=== PATIENT | male | born 1955 | race Caucasian/White ===

== ENCOUNTER 2017-12-15 14:15 | Observation (INO) | payer OTHER, SELFPAY ==
[2017-12-15 15:10] LABS: Absolute Lymphocytes (CBC) 1.4 K/uL (0.7-4.9); Absolute Monocytes 0.7 K/uL (0.1-1.3); Absolute Neutrophil 3.5 K/uL (1.8-8.0); Basophils % 0.8 % (0-1.3); Eosinophils % 0.2 % (0-4.4); Lymphocytes % 25.2 % (15.3-44.8); MCH 33.1 pg (27.0-35.0); MCV 97.5 fL (80-100); MPV 9.7 fL (7.6-11.3); Monocytes % 12.2 % (3.3-12.3); RBC Red Blood Cell Count 4.11 M/uL (4.33-5.43)
[2017-12-15 15:14] LABS: Protime INR 0.9
--- NOTE | 2017-12-15 15:21 | RAD REPORT ---
EXAM DESCRIPTION: CT - Head Brain Wo Cont - 12/15/2017 3:06 pm CLINICAL HISTORY: Transient alteration of awareness, patient found unresponsive COMPARISON: None. TECHNIQUE: Axial 5 mm thick images of the head were obtained without IV contrast. All CT scans are performed using dose optimization technique as appropriate and may include automated exposure control or mA/KV adjustment according to patient size. FINDINGS: No intracranial hemorrhage, mass, edema or shift of mid-line structures. No acute infarcti on changes seen. Mild atrophy changes are present. Ventricular size is in proportion to the volume lo ss. Patient has a symmetric pattern of diminished attenuation in the white matter, primarily parietal lobe. This is typical for chronic ischemic change. Arterial calcifications are present. Mastoid air cells and visualized portions of the paranasal sinuses are clear. No acute bony findings. IMPRESSION: Mild to moderate chronic ischemic change and mild atrophy. No hemorrhage, acute cortical infarction or other acute intracranial finding. Chronic ischemic changes can mask nonhemorrhagic acute infarction. MR brain followup can be obtained if there is ongoing concern for acute ischemia.
[2017-12-15 16:20] LABS: ALT/SGPT 153 U/L (12-78); AST/SGOT 136 U/L (15-37); Albumin 3.6 g/dL (3.4-5.0); Alcohol Serum/Plasma 32 mg/dL (<3); Alkaline Phosphatase 91 U/L (45-117); BUN Blood Urea Nitrogen 13 mg/dL (7-18); Bicarbonate 25 mmol/L (21-32); Bilirubin Direct 0.2 mg/dL (0-0.2); Bilirubin Total 0.4 mg/dL (0.2-1.0); Glucose Level 113 mg/dL (74-106); Potassium 3.9 mmol/L (3.5-5.1); Protein, Total 7.4 g/dL (6.4-8.2); Sodium Level 131 mmol/L (136-145)
--- NOTE | 2017-12-15 16:27 | EKG ---
Test Date: 2017-12-15 Test Time: 15:11:36 Air Reduction Equipment Operator: ANA MEASUREMENT RESULTS: Intervals: Rate: 66 IL: 166 QRSD: 84 QT: 430 QTc: 450 [place]: P: 75 IL: 166 QRS: -16 T: 57 INTERPRETIVE STATEMENTS: Normal sinus rhythm Septal infarct, age undetermined Abnormal ECG Compared to ECG 05/05/2001 22:26:00 Sinus tachycardia no longer present Atrial abnormality no longer present Myocardial infarct finding still present Electronically Signed On 12-15-17 16:26:58 CDT by Diaz Jarquin
[2017-12-15 16:58] LABS: Urine Blood NEGATIVE (NEG); Urine Glucose NEGATIVE (NEG); Urine Protein NEGATIVE (NEG); Urine Specific Gravity 1.015 (1.005-1.030); Urine pH 6.5 (5.0-7.0)
--- NOTE | 2017-12-15 17:01 | EDPHYS ---
Physician Documentation [facility] Name: Miguel Hill Age: 62 yrs Sex: Male : 1955 Arrival Date: 12/15/2017 Time: 14:16 Bed 15 Private MD: ED Physician Stephane Hudson HPI: 12/15 15:49 This 62 yrs old Male presents to ER via EMS with complaints of altered mental snw status/syncope. 15:49 The patient presents with decreased responsiveness. Onset: The symptoms/episode snw began/occurred suddenly, today. Possible causes: unknown. Associated signs and symptoms: Pertinent positives: diaphoresis. Current symptoms: In the emergency department the patient's symptoms have resolved, the patient is alert and fully oriented, has normal speech, has normal responsiveness, has no confusion. Patient's baseline: Neuro: alert and fully oriented, Motor: no deficits, Ambulation: walks without assistance, Speech: normal, The patient has a previous history of ETOH daily, homelessness. It is unknown whether or not the patient has had similar symptoms in the past. The patient has not recently seen a physician. Pt states he was in the park, sat on the bench, awoke in the ambulance soaking wet. Pt states he generally drinks ETOH daily. Had one drink today. States he has had a poor appetite recently. Pt states in June he had a UTI and dehydration and felt poorly but has never passed out before. . Historical: - Allergies: 14:26 PENICILLINS; tw2 - Home Meds: 14:26 None [Active]; tw2 - PMHx: 14:26 None; tw2 - Immunization history:: Adult Immunizations unknown. - Social history:: Smoking status: Patient uses tobacco products, smokes one pack cigarettes per day. - Ebola Screening: : Patient denies travel to an Ebola-affected area in the 21 days before illness onset. ROS: 15:49 Eyes: Negative for injury, pain, redness, and discharge, ENT: Negative for injury, snw pain, and discharge, Neck: Negative for injury, pain, and swelling, Cardiovascular: Negative for chest pain, palpitations, and edema, Respiratory: Negative for shortness of breath, cough, wheezing, and pleuritic chest pain, Back: Negative for injury and pain, : Negative for injury, bleeding, discharge, and swelling, MS/Extremity: Negative for injury and deformity, Skin: Negative for injury, rash, and discoloration. 15:49 Psych: Negative for depression, anxiety, suicide ideation, homicidal ideation, and hallucinations. 15:49 Constitutional: Positive for malaise, poor PO intake. 15:49 Abdomen/GI: Positive for anorexia. 15:49 Neuro: Positive for syncope, in park today. Exam: 15:49 Constitutional: This is a well developed, thin patient who is awake, alert, and in no snw acute distress. Head/Face: Normocephalic, atraumatic. Eyes: Pupils equal round and reactive to light, extra-ocular motions intact. Lids and lashes normal. Conjunctiva and sclera are mildly icteric and not injected. Cornea within normal limits. Periorbital areas with no swelling, redness, or edema. ENT: Nares patent. No nasal discharge, no septal abnormalities noted. Tympanic membranes are normal and external auditory canals are clear. Oropharynx with no redness, swelling, or masses, exudates, or evidence of obstruction, uvula midline. Mucous membranes moist. Neck: Trachea midline, no thyromegaly or masses palpated, and no cervical lymphadenopathy. Supple, full range of motion without nuchal rigidity, or vertebral point tenderness. No Meningismus. Chest/axilla: Normal chest wall appearance and motion. Nontender with no deformity. No lesions are appreciated. Cardiovascular: Regular rate and rhythm with a normal S1 and S2. No gallops, murmurs, or rubs. Normal PMI, no JVD. No pulse deficits. Respiratory: Lungs have equal breath sounds bilaterally, clear to auscultation and percussion. No rales, rhonchi or wheezes noted. No increased work of breathing, no retractions or nasal flaring. Abdomen/GI: Soft, non-tender, with normal bowel sounds. No distension or tympany. No guarding or rebound. No evidence of tenderness throughout. Back: No spinal tenderness. No costovertebral tenderness. Full range of motion. Skin: Warm, dry with normal turgor. Normal color with no rashes, no lesions, and no evidence of cellulitis. MS/ Extremity: Pulses equal, no cyanosis. Neurovascular intact. Full, normal range of motion. Neuro: Awake and alert, GCS 15, oriented to person, place, time, and situation. Cranial nerves II-XII grossly intact. Motor strength 5/5 in all extremities. Sensory grossly intact. Cerebellar exam normal. Normal gait. Psych: Awake, alert, with orientation to person, place and time. Behavior, mood, and affect are within normal limits. Vital Signs: 14:25 BP 121 / 73; Pulse 72; Resp 15; Temp 98.7(O); Pulse Ox 95% on R/A; Weight 49.9 kg (R); tw2 Pain 0/10; 15:39 BP 127 / 82; Pulse 81; Resp 17; Pulse Ox 100% on R/A; tw2 16:44 BP 132 / 87; Pulse 63; Resp 13; Pulse Ox 99% on R/A; tw2 17:56 BP 134 / 79; Pulse 67; Resp 15; Pulse Ox 98% on R/A; tw2 MDM: 14:51 Patient medically screened. snw 16:59 Data reviewed: vital signs, nurses notes. Data interpreted: Pulse oximetry: on room air snw is 99 %. Interpretation: normal. Counseling: I had a detailed discussion with the patient and/or guardian regarding: the historical points, exam findings, and any diagnostic results supporting the discharge/admit diagnosis, the presence of at least one elevated blood pressure reading (>120/80) during this emergency department visit, lab results, radiology results, the need for further work-up and treatment in the hospital. Physician consultation: Adrian Patel DO was called at 16:59, was contacted at 16:59, regarding admission, to the telemetry unit. 12/15 14:50 Order name: Acetaminophen; Complete Time: 16: snw 12/15 14:50 Order name: Basic Metabolic Panel; Complete Time: 16: snw 12/15 14:50 Order name: CBC with Diff; Complete Time: 15:29 snw 12/15 14:50 Order name: ETOH Level; Complete Time: 16:23 snw 12/15 14:50 Order name: Hepatic Function; Complete Time: 16: snw 12/15 14:50 Order name: PT-INR; Complete Time: 15:29 snw 12/15 14:50 Order name: Ptt, Activated; Complete Time: 15:29 snw 12/15 14:50 Order name: Salicylate; Complete Time: 15:36 snw 12/15 14:50 Order name: Urine Drug Screen; Complete Time: 17:15 snw 12/15 16:56 Order name: Urine Dipstick--Ancillary (enter results); Complete Time: 17:01 mb4 12/15 17:26 Order name: Urinalysis EDMS 12/15 17:26 Order name: CBC with Automated Diff EDMS 12/15 17:26 Order name: CBC with Automated Diff EDMS 12/15 17:26 Order name: CBC with Automated Diff EDMS 12/15 17:26 Order name: CBC with Automated Diff EDMS 12/15 17:26 Order name: CKMB Creatine Kinase MB EDMS 12/15 17:26 Order name: CKMB Creatine Kinase MB EDMS 12/15 17:26 Order name: CKMB Creatine Kinase MB EDMS 12/15 17:26 Order name: Comprehensive Metabolic Panel EDMS 12/15 17:26 Order name: Comprehensive Metabolic Panel EDMS 12/15 17:26 Order name: Comprehensive Metabolic Panel EDMS 12/15 17:26 Order name: Comprehensive Metabolic Panel EDMS 12/15 17:26 Order name: Creatine Phosphokinase EDMS 12/15 17:26 Order name: Creatine Phosphokinase EDMS 12/15 17:26 Order name: Creatine Phosphokinase EDMS 12/15 17:26 Order name: Lipid Profile EDMS 12/15 17:26 Order name: Lipid Profile EDMS 12/15 17:26 Order name: Magnesium EDMS 12/15 17:26 Order name: Magnesium EDMS 12/15 17:26 Order name: Magnesium EDMS 12/15 14:50 Order name: EKG; Complete Time: 14:50 snw 12/15 14:50 Order name: EKG - Nurse/Tech; Complete Time: 15:14 snw 12/15 14:50 Order name: IV Saline Lock; Complete Time: 14:54 snw 12/15 14:50 Order name: Labs collected and sent; Complete Time: 14:54 snw 12/15 14:50 Order name: Urine Dipstick-Ancillary (obtain specimen); Complete Time: 16:51 snw 12/15 14:50 Order name: CT Head Brain wo Cont; Complete Time: 15:29 snw 12/15 16:59 Order name: Chest Single View XRAY snw 12/15 17:26 Order name: Physical Therapy Consult EDMS 12/15 17:26 Order name: Regular EDMS 12/15 17:26 Order name: Echo with Doppler EDMS 12/15 17:26 Order name: Magnesium EDMS 12/15 17:26 Order name: T4 Free EDMS 12/15 17:26 Order name: T4 Free EDMS 12/15 17:26 Order name: Troponin I EDMS 12/15 17:26 Order name: Troponin I EDMS 12/15 17:26 Order name: Troponin I EDMS 12/15 17:26 Order name: Thyroid Stimulating Hormone EDMS 12/15 17:26 Order name: Thyroid Stimulating Hormone EDMS 12/15 17:26 Order name: Stroke Protocol EDMS 12/15 17:26 Order name: Carotid Artery Bilateral EDMS Administered Medications: No medications were administered Disposition: 12/15/17 17:00 Hospitalization ordered by Adrian Patel for Observation. Preliminary diagnosis are Altered mental status, unspecified, Dehydration. - Bed requested for Telemetry/MedSurg (observation). - Status is Observation. tw2 - Condition is Stable. - Problem is new. - Symptoms are resolved. UTI on Admission? No Addendum: 12/17/2017 08:12 Co-signature as Attending Physician, Stephane Hudson MD I agree with the assessment and w a plan of care. Signatures: Dispatcher [employer] EDCT Nathalia Rubi, BHAVESH-C CENTRAL OFFICE REPAIRER-Csnw Brittany Butler, RN RN tw2 Stephane Hudson MD MD wa Baxter, Mackenzie mb4 Corrections: (The following items were deleted from the chart) 12/15 18:06 17:00 Hospitalization Ordered by Adrian Patel DO for Observation. Preliminary mb4 diagnosis is Altered mental status, unspecified; Dehydration. Bed requested for Telemetry/MedSurg (observation). Status is Observation. Condition is Stable. Problem is new. Symptoms are resolved. UTI on Admission? No. snw 18:32 18:06 12/15/2017 17:00 Hospitalization Ordered by Adrian Patel DO for Observation. tw2 Preliminary diagnosis is Altered mental status, unspecified; Dehydration. Bed requested for Telemetry/MedSurg (observation). Status is Observation. Condition is Stable. Problem is new. Symptoms are resolved. UTI on Admission? No. mb4
--- NOTE | 2017-12-15 17:01 | ER ---
Nurse's Notes [facility] Name: Miguel Hill Age: 62 yrs Sex: Male : 1955 Arrival Date: 12/15/2017 Time: 14:16 Bed 15 Private MD: Diagnosis: Altered mental status, unspecified;Dehydration Presentation: 12/15 14:17 Presenting complaint: EMS states: pt was found unresponsive in park, was a\T\ox1 when we tw2 arrived, now he is a\T\ox3, HR is elevated, vs stable, 18G RIGHT FA, allergy PCN, denies med hx, admits to drinking today, does have slurred speech and is homeless. Transition of care: patient was received from another setting of care (hospital). Onset of symptoms was December 15, 2017. Risk Assessment: Do you want to hurt yourself or someone else? Patient reports no desire to harm self or others. Care prior to arrival: IV initiated. 18 GA, in the right forearm. 14:17 Method Of Arrival: EMS: [facility] tw2 14:17 Acuity: ANALISA 3 tw2 16:16 Initial Sepsis Screen: Does the patient meet any 2 criteria? No. Patient's initial tw2 sepsis screen is negative. Does the patient have a suspected source of infection? No. Patient's initial sepsis screen is negative. Historical: - Allergies: 14:26 PENICILLINS; tw2 - Home Meds: 14:26 None [Active]; tw2 - PMHx: 14:26 None; tw2 - Immunization history:: Adult Immunizations unknown. - Social history:: Smoking status: Patient uses tobacco products, smokes one pack cigarettes per day. - Ebola Screening: : Patient denies travel to an Ebola-affected area in the 21 days before illness onset. Screenin:16 Abuse screen: Denies threats or abuse. Nutritional screening: No deficits noted. tw2 Tuberculosis screening: No symptoms or risk factors identified. Fall Risk None identified. Assessment: 14:20 General: Appears in no apparent distress. unkempt, Behavior is calm, cooperative, tw2 appropriate for age. Pain: Denies pain. Neuro: Level of Consciousness is awake, alert, obeys commands, Oriented to person, place, time, situation. Cardiovascular: Denies chest pain, shortness of breath, Heart tones S1 S2 Capillary refill < 3 seconds Patient's skin is warm and dry. Respiratory: Airway is patent Respiratory effort is even, unlabored, Respiratory pattern is regular, symmetrical, Breath sounds are clear bilaterally. GI: No signs and/or symptoms were reported involving the gastrointestinal system. : No signs and/or symptoms were reported regarding the genitourinary system. EENT: No signs and/or symptoms were reported regarding the EENT system. Derm: No signs and/or symptoms reported regarding the dermatologic system. Skin is intact, is healthy with good turgor. Musculoskeletal: Range of motion: intact in all extremities. 15:39 Reassessment: Patient appears in no apparent distress at this time. No changes from tw2 previously documented assessment. Patient and/or family updated on plan of care and expected duration. Pain level reassessed. Patient is alert, oriented x 3, equal unlabored respirations, skin warm/dry/pink. 16:51 Reassessment: Patient appears in no apparent distress at this time. No changes from tw2 previously documented assessment. Patient and/or family updated on plan of care and expected duration. Pain level reassessed. Patient is alert, oriented x 3, equal unlabored respirations, skin warm/dry/pink. Vital Signs: 14:25 BP 121 / 73; Pulse 72; Resp 15; Temp 98.7(O); Pulse Ox 95% on R/A; Weight 49.9 kg (R); tw2 Pain 0/10; 15:39 BP 127 / 82; Pulse 81; Resp 17; Pulse Ox 100% on R/A; tw2 16:44 BP 132 / 87; Pulse 63; Resp 13; Pulse Ox 99% on R/A; tw2 17:56 BP 134 / 79; Pulse 67; Resp 15; Pulse Ox 98% on R/A; tw2 ED Course: 14:16 Patient arrived in ED. tw2 14:17 Brittany Butler, OMAYRA is Primary Nurse. tw2 14:18 Triage completed. tw2 14:25 Arm band placed on. tw2 14:41 Initial lab(s) drawn, by me, held in ED. Maintain EMS IV. Dressing intact. Site clean \T\ mh5 dry. 14:42 Patient has correct armband on for positive identification. Call light in reach. Side mh5 rails up X2. Warm blanket given. oakes machine operator on. Pulse ox on. NIBP on. 14:49 Nathalia Rubi FNP-C is [facility]. snw 14:49 Stephane Hudson MD is Attending Physician. snw 14:59 sent to lab. [facility] 15:06 CT completed. Patient tolerated procedure well. Patient moved to CT via stretcher. vr Patient moved back from CT. 15:06 CT Head Brain wo Cont In Process Unspecified. EDMS 15:17 EKG done, by senior health physics technician. reviewed by Nathalia GHOTRA. 3 16:11 Awaiting lab results, Awaiting: spoke with Arsen Yoo for BMP and ETOH levels, labs are tw2 still running should be 10-20 minutes, provider notified. 16:53 Urine Drug Screen Sent. tw2 17:00 Adrian Patel DO is Hospitalizing Provider. snw 18:10 No provider procedures requiring assistance completed. Patient admitted, IV remains in tw2 place. Administered Medications: No medications were administered Outcome: 17:00 Decision to Hospitalize by Provider. snw 18:11 Admitted to Med/surg accompanied by [facility], via wheelchair, room 414, with chart, Report tw2 called to OMAYRA Kamara 18:11 Condition: stable 18:11 Instructed on the need for admit. 18:32 Patient left the ED. tw2 Signatures: Dispatcher [employer] EDMS Nathalia Rubi FNP-C FNP-Katerine Gregory Tara, RN RN tw2 Saray Serna [facility] Samantha Rosario 3
[2017-12-15 17:12] LABS: Barbiturates NEGATIVE (NEGATIVE); Benzodiazepines NEGATIVE (NEGATIVE); Cocaine NEGATIVE (NEGATIVE); METHAMPHETAM NEGATIVE (NEGATIVE); Methadone NEGATIVE (NEGATIVE); Opiates NEGATIVE (NEGATIVE); Phencyclidine NEGATIVE (NEGATIVE)
[2017-12-15 17:14] LABS: THC Cannibis POSITIVE (NEGATIVE)
[2017-12-15] MEDS ORDERED: ACETAMINOPHEN 500 MG TAB PO PRN (17:19)
[2017-12-15] MEDS ORDERED: ONDANSETRON 4 MG/2 ML VIAL IV PRN (17:19)
[2017-12-15] MEDS ORDERED: ALBUTEROL 2.5 MG/3 ML NEB SOL NEB PRN (17:19)
[2017-12-15] MEDS ORDERED: IPRATROPIUM BROM 0.5MG/2.5ML NEB PRN (17:19)
[2017-12-15] MEDS ORDERED: LORazepam 2 MG/ML VIAL IV PRN (17:19)
--- NOTE | 2017-12-15 17:31 | P.HP ---
Certification for Inpatient Patient admitted to: Observation With expected LOS: <2 Midnights Patient will require the following post-hospital care: None Practitioner: I am a practitioner with admitting privileges, knowledge of patient current condition, hospital course, and medical plan of care. Services: Services provided to patient in accordance with Admission requirements found in Title 42 Section 412.3 of the Code of Federal Regulations Patient History Date of Service: 12/15/17 Primary Care Provider: None Reason for admission: Altered mental status, syncope History of Present Illness: 62-year-old male presented emergency room after he was found unconscious. Most information came from the ER provider. He reports that he felt dizzy earlier in the day. But does not recall what happened thereafter. Apparently friends found him down difficult to arouse. EMS was called. Patient was oriented x1 when he was evaluated. By the time it came to the emergency room he was oriented x3. The patient appeared dehydrated. Patient with history of alcohol abuse, tobacco abuse, and THC use. Patient denied any significant chest pain. He reports some shortness of breath from time to time. He is a heavy smoker. He denied any nausea, vomiting. He reports eating very poorly over the last several days. He denied any seizures. In the ER patient was evaluated. Initial lab shows CBC unremarkable. Sodium 131, glucose 113. AST elevated at 136. ALT 152. THC was positive. Alcohol level was elevated at 32. Urinalysis unremarkable. Chest x-ray pending. CT showed no acute changes. Chronic ischemic changes noted patient was admitted for further evaluation. When I saw the patient ER, he appeared appropriate. Patient apparently works on a boat. He admits alcohol and tobacco abuse. Allergies Penicillins Allergy (Unverified 02/25/17 10:34) Unknown Home medications list reviewed: Yes - Past Medical/Surgical History Diabetic: No -: Tobacco abuse -: Alcohol abuse -: THC use -: Hernia repair Psychosocial/ Personal History: The patient is single. He works on a [employer] boat. He is unsure whether he has several children. - Family History Mother -: Cancer (Lung cancer) - Social History Smoking Status: Heavy Tobacco smoker (>10 cigarettes/day) Counseled patient to stop smoking for: less than 10 minutes Smoking therapy provided: Yes Patient receptive to therapy: Yes Alcohol use: Yes CD- Drugs: Yes Caffeine use: Yes Place of Residence: Home Review of Systems General: Weakness, As per HPI Eyes: Unremarkable ENT: Unremarkable Respiratory: Shortness of Breath, As per HPI Cardiovascular: Light Headedness, As per HPI Gastrointestinal: Unremarkable Genitourinary: Unremarkable Musculoskeletal: Unremarkable Integumentary: Unremarkable Neurological: As per HPI Lymphatics: Unremarkable Physical Examination - Physical Exam General: Alert, In no apparent distress, Oriented x3, Cooperative, Cachectic, Disheveled HEENT: Atraumatic, Normocephalic, PERRLA, Other (Dry mucous membranes) Neck: Supple, No Thyromegaly Respiratory: Expiratory wheezes (Mild bilateral), Other (Barrel chested) Cardiovascular: Normal pulses, Regular rate/rhythm Gastrointestinal: Normal bowel sounds, Soft and benign, Non-distended, No tenderness, No masses, No rebound, No guarding, Other (appears malnourished) Musculoskeletal: No contractures, No erythema, No tenderness, No warmth Integumentary: No tenderness/swelling, No erythema, No warmth, No cyanosis Neurological: Normal speech, Normal strength at 5/5 x4 extr, Normal tone, Normal affect - Studies Laboratory Data (last 24 hrs) 12/15/17 13:15: PT 10.6, INR 0.90, APTT 23.5 L 12/15/17 13:15: WBC 5.6, Hgb 13.6, Hct 40.0, Plt Count 135 L 12/15/17 13:15: Sodium 131 L, Potassium 3.9, BUN 13, Creatinine 0.80, Glucose 113 H, Total Bilirubin 0.4, AST 136 H, ALT 153 H, Alkaline Phosphatase 91 Assessment and Plan - Problems (Diagnosis) (1) Altered mental status Current Visit: Yes Status: Acute Plan: Patient likely had syncopal episode from malnutrition and poor oral intake. Most likely dehydrated. Patient also drinks heavily. Will evaluate for CVA. Will check echo, carotid Doppler, and stroke protocol MRI. Will continue with IV fluids. Will provide medication for COPD. Will check for hepatitis due to elevation in liver function test. Will monitor cardiac enzymes. Qualifiers: Altered mental status type: unspecified Qualified Code(s): R41.82 - Altered mental status, unspecified (2) Syncope Current Visit: Yes Status: Acute Plan: Likely from dehydration. Will continue IV fluids. Continue workup for a CVA. Qualifiers: Syncope type: unspecified Qualified Code(s): R55 - Syncope and collapse (3) Dehydration Current Visit: Yes Status: Acute Plan: Continue IV fluids. (4) Alcohol abuse Current Visit: Yes Status: Chronic Plan: Alcohol cessation addressed. Will provide Ativan as needed. Patient drinks about 6-8 beers a day. He has not had any DTs in the past. (5) Tobacco abuse Current Visit: Yes Status: Chronic Plan: Tobacco cessation addressed in detail. (6) Tetrahydrocannabinol (THC) use disorder, mild, abuse Current Visit: Yes Status: Chronic Plan: THC cessation will be addressed in detail. (7) Elevated liver function tests Current Visit: Yes Status: Chronic Plan: This is likely chronic. Patient likely has underlying cirrhosis due to alcohol abuse. Will check for hepatitis panel and HIV. (8) COPD (chronic obstructive pulmonary disease) Current Visit: Yes Status: Suspected Plan: Suspect COPD due to barrel chest. Will provide COPD medication. Qualifiers: COPD type: chronic bronchitis Chronic bronchitis type: unspecified Qualified Code(s): J42 - Unspecified chronic bronchitis (9) Malnutrition Current Visit: Yes Status: Chronic Plan: Patient is severely malnourished likely from alcohol abuse. Will provide IV fluids. Will encourage oral intake. Qualifiers: Malnutrition type: protein-calorie malnutrition Protein-calorie malnutrition severity: severe Qualified Code(s): E43 - Unspecified severe protein-calorie malnutrition (10) Hyponatremia Current Visit: Yes Status: Acute Plan: Likely from dehydration. Will start IV fluids Discharge Plan: Home Plan to discharge in: 24 Hours - Advance Directives Does patient have a Living Will: No Does patient have a Durable POA for Healthcare: No - Code Status/Comfort Care Code Status Assessed: Yes (Patient full code.) Time Spent Managing Pts Care (In Minutes): 55
--- NOTE | 2017-12-15 18:50 | RAD REPORT ---
EXAM DESCRIPTION: RAD - Chest Single View - 12/15/2017 6:11 pm CLINICAL HISTORY: Altered mental status, respiratory distress, patient found unresponsive COMPARISON: None. TECHNIQUE: AP portable chest image was obtained 1758 hours . FINDINGS: No focal lung parenchymal process. No failure or volume overload. Mild peribronchial thick ening is seen. Interstitial markings are prominent in part due to the film technique utilized. No com parison is available. Heart and vasculature are normal. No measurable pleural effusion and no pneumot horax. No gross bony abnormality seen. No acute aortic findings suspected. IMPRESSION: No failure, mass or focal infiltrate. Interstitial markings are prominent with mild peribronchial thickening. Viral infiltrate is possible.
[2017-12-15] MEDS ORDERED: ATORVASTATIN 10 MG TAB PO SCH (21:00)
--- NOTE | 2017-12-15 21:05 | RAD REPORT ---
EXAM DESCRIPTION: MRI - Brain W/Wo Cont - 12/15/2017 8:47 pm CLINICAL HISTORY: Syncope COMPARISON: CT head same date TECHNIQUE: Sagittal and axial T1-weighted images were obtained. Axial PD/heavily T2-weighted and T2- FLAIR images were obtained along with axial DWI/ADC mapping sequences. Coronal heavily T2 weighted s equence obtained. Axial and coronal post-contrast T1-weighted images were also obtained. A 12 ml Mul tiHance contrast following utilized. FINDINGS: No intracranial hemorrhage, mass or acute infarction. There is no edema or shift of midli ne structures. No extra-axial fluid collections. Reyes-matter/white matter junction is preserved. Sig nal voids are seen as a normal finding in the major intracranial vessels. Mild atrophy changes are pr esent. Ventricular size is in proportion. Moderate chronic ischemic changes are present. No globe or orbital content abnormality. Post-contrast images show normal enhancement. No dural thickening. Mastoid air cells and paranasal sinuses are clear. IMPRESSION: No acute infarction. No hemorrhage, mass or acute intracranial finding. Mild atrophy and moderate chronic ischemic change.
--- NOTE | 2017-12-15 21:07 | RAD REPORT ---
EXAM DESCRIPTION: MRI - MRA Head Wo Cont - 12/15/2017 8:47 pm CLINICAL HISTORY: Syncope COMPARISON: None. TECHNIQUE: Axial and coronal 3D azeh-by-sbyoit image acquisition was performed. 3D rotational images were generated with source and reconstruction images reviewed. Maximum intensity projection protocol utilized. FINDINGS: No aneurysm or vascular malformation. Minimal tortuosity of a normal diameter basilar castillo ry. From skullbase to supraclinoid termination the internal carotid artery show no focal stenosis. An terior, middle and posterior cerebral artery distributions also without significant atherosclerotic c hange. IMPRESSION: MRA head examination shows no significant atherosclerotic change. No significant vascula r finding.
[2017-12-15] MEDS: ARFORMOTEROL TARTRATE 15 MCG/2 ML VIAL.NEB NEB SCH (21:53)
--- NOTE | 2017-12-15 22:11 | RAD REPORT ---
EXAM DESCRIPTION: MRI - MRA Neck W/Wo Cont - 12/15/2017 8:47 pm CLINICAL HISTORY: Syncope COMPARISON: None. TECHNIQUE: Coronal plane MRA imaging of the cervical vasculature performed. Maximum intensity projec tion protocol utilized. A 12 milliliter MultiHance contrast volume utilized. Coronal and vertical axe s 3D rotational projections reviewed. FINDINGS: Aortic arch is bovine configuration with no origin stenosis. Codominant vertebral arteries also without origins stenosis. The common carotid, internal carotid and vertebral artery show no dis section, stenosis or focal abnormality. No aneurysm or vascular malformation. IMPRESSION: Negative MRA neck examination.
--- NOTE | 2017-12-15 22:11 | RAD REPORT ---
EXAM DESCRIPTION: US - CP - 12/15/2017 9:16 pm CLINICAL HISTORY: Syncope COMPARISON: MR imaging same date TECHNIQUE: Real-time sonographic evaluation of both carotid systems was performed. Doppler interroga tion was performed with waveform tracing bilaterally. FINDINGS: Normal high resistance waveforms are noted in both external carotid arteries. The common c arotid arteries and internal carotid arteries show normal low resistance waveforms. Calcified plaquing changes are identifiable in the right common carotid artery and left bulb. No sign ificant luminal narrowing is identifiable. No dissection. Peak systolic and end diastolic velocity va lues and the ICA/CCA ratios are in the non-hemodynamically significant range. Antegrade flow seen in both vertebral arteries. Velocity values and ratios were recorded and are retained in the patient's imaging records. IMPRESSION: Bilateral calcified plaquing changes are present without significant luminal narrowing. No evidence of a hemodynamically significant stenosis.
[2017-12-15] MEDS: ENOXAPARIN 40 MG/0.4 ML SQ SCH (22:44)
[2017-12-15] MEDS: FOLIC ACID 1 MG TABLET PO SCH (22:44)
[2017-12-15] MEDS: NA CHLORIDE 0.9% 1,000 ML IV SCH (22:44)
[2017-12-15] MEDS: PANTOPRAZOLE 40MG TABLET PO SCH (22:44)
[2017-12-15] MEDS: ASPIRIN EC 81 MG TAB PO SCH (22:44)
[2017-12-15] MEDS: THIAMINE HCL 100 MG TABLET PO SCH (22:45)
[2017-12-16 00:01] LABS: CKMB Creatine Kinase MB 4.5 ng/mL (0.3-3.6)
[2017-12-16] MEDS: NA CHLORIDE 0.9% 1,000 ML IV SCH (04:13)
[2017-12-16 04:44] LABS: Absolute Lymphocytes (CBC) 1.6 K/uL (0.7-4.9); Absolute Monocytes 0.6 K/uL (0.1-1.3); Absolute Neutrophil 2.4 K/uL (1.8-8.0); Basophils % 0.9 % (0-1.3); Eosinophils % 1.3 % (0-4.4); Hematocrit 39.6 % (39.6-49.0); Lymphocytes % 34.5 % (15.3-44.8); MCH 33.9 pg (27.0-35.0); MCV 98.1 fL (80-100); Monocytes % 12.1 % (3.3-12.3); RBC Red Blood Cell Count 4.04 M/uL (4.33-5.43)
[2017-12-16 04:58] LABS: ALT/SGPT 129 U/L (12-78); AST/SGOT 114 U/L (15-37); Albumin 3.1 g/dL (3.4-5.0); Alkaline Phosphatase 84 U/L (45-117); BUN Blood Urea Nitrogen 11 mg/dL (7-18); Bicarbonate 26 mmol/L (21-32); Bilirubin Total 0.4 mg/dL (0.2-1.0); Glucose Level 81 mg/dL (74-106); HDL Cholesterol 80 mg/dL (40-60); LDL Cholesterol, Calculated 25 (<130); Magnesium 2.1 mg/dL (1.8-2.4); Potassium 3.7 mmol/L (3.5-5.1); Protein, Total 6.7 g/dL (6.4-8.2); Sodium Level 139 mmol/L (136-145)
[2017-12-16] MEDS ORDERED: POTASSIUM CL SA 10 MEQ TAB PO ONE (05:27)
[2017-12-16 08:01] LABS: CKMB Creatine Kinase MB 3.5 ng/mL (0.3-3.6)
[2017-12-16] MEDS: PANTOPRAZOLE 40MG TABLET PO SCH (09:11)
[2017-12-16] MEDS: FOLIC ACID 1 MG TABLET PO SCH (09:11)
[2017-12-16] MEDS: ASPIRIN EC 81 MG TAB PO SCH (09:11)
[2017-12-16] MEDS: ENOXAPARIN 40 MG/0.4 ML SQ SCH (09:11)
[2017-12-16] MEDS: THIAMINE HCL 100 MG TABLET PO SCH (09:12)
[2017-12-16] MEDS: ARFORMOTEROL TARTRATE 15 MCG/2 ML VIAL.NEB NEB SCH (09:27)
--- NOTE | 2017-12-16 09:27 | RAD REPORT ---
EXAM DESCRIPTION: US - Liver Only - 12/16/2017 7:20 am CLINICAL HISTORY: Abdominal pain/abnormal liver function test enzymes COMPARISON: None FINDINGS: The liver has an increased echotexture. It is mildly inhomogeneous. A discrete lesion is n ot seen. Hepatopetal flow is present. The liver is normal size. IMPRESSION: Increased and mildly inhomogeneous hepatic echotexture consistent with parenchymal disea se. This may represent fatty infiltration or inflammation
--- NOTE | 2017-12-16 10:17 | P.DS ---
Admission Date: 12/15/17 Discharge Date: 12/16/17 Primary Care Provider: None Disposition: ROUTINE DISCHARGE Discharge Condition: GOOD Reason for Admission: Altered mental status, syncope Procedures: MRI: COMPARISON: CT head same date TECHNIQUE: Sagittal and axial T1-weighted images were obtained. Axial PD/ heavily T2-weighted and T2-FLAIR images were obtained along with axial DWI/ADC mapping sequences. Coronal heavily T2 weighted sequence obtained. Axial and coronal post-contrast T1-weighted images were also obtained. A 12 ml MultiHance contrast following utilized. FINDINGS: No intracranial hemorrhage, mass or acute infarction. There is no edema or shift of midline structures. No extra-axial fluid collections. Reyes- matter/white matter junction is preserved. Signal voids are seen as a normal finding in the major intracranial vessels. Mild atrophy changes are present. Ventricular size is in proportion. Moderate chronic ischemic changes are present. No globe or orbital content abnormality. Post-contrast images show normal enhancement. No dural thickening. Mastoid air cells and paranasal sinuses are clear. IMPRESSION: No acute infarction. No hemorrhage, mass or acute intracranial finding. Mild atrophy and moderate chronic ischemic change. MRA: COMPARISON: None. TECHNIQUE: Axial and coronal 3D ixut-vs-nkxmeg image acquisition was performed. 3D rotational images were generated with source and reconstruction images reviewed. Maximum intensity projection protocol utilized. FINDINGS: No aneurysm or vascular malformation. Minimal tortuosity of a normal diameter basilar artery. From skullbase to supraclinoid termination the internal carotid artery show no focal stenosis. Anterior, middle and posterior cerebral artery distributions also without significant atherosclerotic change. IMPRESSION: MRA head examination shows no significant atherosclerotic change. No significant vascular finding. Carotid doppler: COMPARISON: MR imaging same date TECHNIQUE: Real-time sonographic evaluation of both carotid systems was performed. Doppler interrogation was performed with waveform tracing bilaterally. FINDINGS: Normal high resistance waveforms are noted in both external carotid arteries. The common carotid arteries and internal carotid arteries show normal low resistance waveforms. Calcified plaquing changes are identifiable in the right common carotid artery and left bulb. No significant luminal narrowing is identifiable. No dissection. Peak systolic and end diastolic velocity values and the ICA/CCA ratios are in the non-hemodynamically significant range. Antegrade flow seen in both vertebral arteries. Velocity values and ratios were recorded and are retained in the patient's imaging records. IMPRESSION: Bilateral calcified plaquing changes are present without significant luminal narrowing. No evidence of a hemodynamically significant stenosis. Liver US: COMPARISON: None FINDINGS: The liver has an increased echotexture. It is mildly inhomogeneous. A discrete lesion is not seen. Hepatopetal flow is present. The liver is normal size. IMPRESSION: Increased and mildly inhomogeneous hepatic echotexture consistent with parenchymal disease. This may represent fatty infiltration or inflammation ECHO: Obtained. - Problems (1) Altered mental status Onset Date: 12/16/17 Current Visit: Yes Status: Acute Qualifiers: Altered mental status type: unspecified Qualified Code(s): R41.82 - Altered mental status, unspecified (2) Syncope Onset Date: 12/16/17 Current Visit: Yes Status: Acute Qualifiers: Syncope type: unspecified Qualified Code(s): R55 - Syncope and collapse (3) Dehydration Onset Date: 12/16/17 Current Visit: Yes Status: Acute (4) Alcohol abuse Onset Date: 12/16/17 Current Visit: Yes Status: Chronic (5) Tobacco abuse Onset Date: 12/16/17 Current Visit: Yes Status: Chronic (6) Tetrahydrocannabinol (THC) use disorder, mild, abuse Onset Date: 12/16/17 Current Visit: Yes Status: Chronic (7) Elevated liver function tests Onset Date: 12/16/17 Current Visit: Yes Status: Chronic (8) COPD (chronic obstructive pulmonary disease) Onset Date: 12/16/17 Current Visit: Yes Status: Suspected Qualifiers: COPD type: chronic bronchitis Chronic bronchitis type: unspecified Qualified Code(s): J42 - Unspecified chronic bronchitis (9) Malnutrition Onset Date: 12/16/17 Current Visit: Yes Status: Chronic Qualifiers: Malnutrition type: protein-calorie malnutrition Protein-calorie malnutrition severity: severe Qualified Code(s): E43 - Unspecified severe protein-calorie malnutrition (10) Hyponatremia Onset Date: 12/16/17 Current Visit: Yes Status: Acute (11) Fatty liver Current Visit: Yes Status: Chronic (12) Cirrhosis Current Visit: Yes Status: Suspected Qualifiers: Hepatic cirrhosis type: alcoholic cirrhosis Ascites presence: unspecified Qualified Code(s): K70.30 - Alcoholic cirrhosis of liver without ascites Brief History of Present Illness: 62-year-old male presented emergency room after he was found unconscious. Most information came from the ER provider. He reports that he felt dizzy earlier in the day. But does not recall what happened thereafter. Apparently friends found him down difficult to arouse. EMS was called. Patient was oriented x1 when he was evaluated. By the time it came to the emergency room he was oriented x3. The patient appeared dehydrated. Patient with history of alcohol abuse, tobacco abuse, and THC use. Patient denied any significant chest pain. He reports some shortness of breath from time to time. He is a heavy smoker. He denied any nausea, vomiting. He reports eating very poorly over the last several days. He denied any seizures. In the ER patient was evaluated. Initial lab shows CBC unremarkable. Sodium 131, glucose 113. AST elevated at 136. ALT 152. THC was positive. Alcohol level was elevated at 32. Urinalysis unremarkable. Chest x-ray pending. CT showed no acute changes. Chronic ischemic changes noted patient was admitted for further evaluation. When I saw the patient ER, he appeared appropriate. Patient apparently works on a boat. He admits alcohol and tobacco abuse. Hospital Course: Patient presented with altered mental status and syncope. This is likely from dehydration and poor oral intake. Patient was evaluated in the emergency room and admitted for further evaluation. Evaluation included stroke protocol MRI, echocardiogram, and carotid Doppler. No acute abnormality noted. No acute vascular stenosis noted. MRI did showed some chronic ischemic changes. Patient did well in the course of his stay. Patient received IV fluids and ate well. Lab unremarkable except elevated liver function tests. This was likely related to his alcohol use. At discharge patient will continue with aspirin 81 mg daily. Recommendation to increase oral hydration and oral intake. Patient found to have elevated liver function. Liver ultrasound showed increased and mild hepatic echotexture consistent with parenchymal disease likely from fatty liver versus alcoholic cirrhosis. Hepatitis panel and HIV panel pending at discharge. Recommendations for the patient to follow up with GI as an outpatient to further monitor and address. Recommendation on alcohol cessation addressed in detail. Patient understands this. At discharge patient will continue with thiamine 100 mg daily and folic acid 1 mg daily. Patient likely has underlying COPD. At discharge he will continue with Airduo 1 puff twice daily and Pro air 2 puffs 3 times a day as needed for shortness of breath. Patient may follow up with a PCP or pulmonology to further monitor and address. Tobacco and alcohol cessation addressed in detail. Patient was positive for THC. Cessation also address in detail. Patient understands this. Patient will be provided information to establish care in the local community with a PCP. Vital Signs/Physical Exam: Temp Pulse Resp BP Pulse Ox 97.9 F 55 18 129/97 H 99 12/16/17 08:00 12/16/17 08:00 12/16/17 08:00 12/16/17 08:00 12/16/17 08:00 General: Alert, In no apparent distress, Oriented x3, Cooperative, Cachectic, Disheveled HEENT: Atraumatic Neck: Supple Respiratory: Clear to auscultation bilaterally, Normal air movement, Other ( Barrel chest) Cardiovascular: Normal pulses, Regular rate/rhythm Gastrointestinal: Normal bowel sounds, Soft and benign, Non-distended, No tenderness, No masses, No rebound, No guarding Musculoskeletal: No erythema, No tenderness, No warmth Integumentary: No tenderness/swelling, No erythema, No warmth, No cyanosis Neurological: Normal speech, Normal strength at 5/5 x4 extr, Normal tone, Normal affect Laboratory Data at Discharge: WBC 4.7 K/uL (4.3-10.9) D 12/16/17 04:09 Hgb 13.7 g/dL (13.6-17.9) 12/16/17 04:09 Hct 39.6 % (39.6-49.0) 12/16/17 04:09 Plt Count 127 K/uL (152-406) L 12/16/17 04:09 PT 10.6 SECONDS (9.5-12.5) 12/15/17 13:15 INR 0.90 12/15/17 13:15 APTT 23.5 SECONDS (24.3-36.9) L 12/15/17 13:15 Sodium 139 mmol/L (136-145) 12/16/17 04:09 Potassium 3.7 mmol/L (3.5-5.1) 12/16/17 04:09 BUN 11 mg/dL (7-18) 12/16/17 04:09 Creatinine 0.80 mg/dL (0.55-1.3) 12/16/17 04:09 Glucose 81 mg/dL (74-106) 12/16/17 04:09 Magnesium 2.1 mg/dL (1.8-2.4) 12/16/17 04:09 Total Bilirubin 0.4 mg/dL (0.2-1.0) 12/16/17 04:09 AST 114 U/L (15-37) H 12/16/17 04:09 ALT 129 U/L (12-78) H 12/16/17 04:09 Alkaline Phosphatase 84 U/L (45-117) 12/16/17 04:09 Troponin I < 0.02 ng/mL (0.0-0.045) 12/16/17 07:02 Triglycerides 59 mg/dL (<150) 12/16/17 04:09 Cholesterol 117 mg/dL (<200) 12/16/17 04:09 HDL Cholesterol 80 mg/dL (40-60) H 12/16/17 04:09 Cholesterol/HDL Ratio 1.46 12/16/17 04:09 Home Medications: Albuterol Sulfate [Proair Hfa] 8.5 gm IH TID PRN #1 hfa.aer.ad 12/16/17 Aspirin [Aspirin EC 81 MG] 81 mg PO DAILY #30 tablet. 12/16/17 Fluticasone/Salmeterol [Airduo Respiclick 113-14 Mcg] 1 each IH BID #1 aer.pow.ba 12/16/17 Folic Acid 1 mg PO DAILY #90 tablet 12/16/17 Thiamine HCl [Vitamin B-1*] 100 mg PO DAILY #90 tablet 12/16/17 New Medications: Albuterol Sulfate [Proair Hfa] 8.5 gm IH TID PRN #1 hfa.aer.ad PRN Reason: Shortness Of Breath Aspirin [Aspirin EC 81 MG] 81 mg PO DAILY #30 tablet. Fluticasone/Salmeterol [Airduo Respiclick 113-14 Mcg] 1 each IH BID #1 aer.pow.ba Folic Acid 1 mg PO DAILY #90 tablet Thiamine HCl [Vitamin B-1*] 100 mg PO DAILY #90 tablet Patient Discharge Instructions: 1. Patient will need to establish care with a local PCP to follow up this hospitalization. Patient will be provided information. 2. Patient presented with altered mental status and syncope. This is likely from dehydration and poor oral intake. Patient was admitted for evaluation. Evaluation included stroke protocol MRI, echocardiogram, and carotid Doppler. No acute abnormality noted. No acute vascular stenosis noted. MRI did showed some chronic ischemic changes. Patient did well in the course of his stay. At discharge patient will continue with aspirin 81 mg daily. Recommendation to increase oral hydration and oral intake. 3. Patient found to have elevated liver function. Liver ultrasound showed increased and mild hepatic echotexture consistent with parenchymal disease liver likely related to Fatty liver versus alcoholic cirrhosis. Hepatitis panel and HIV panel pending at discharge. Recommendations for the patient to follow up with GI as an outpatient to further monitor and address. Recommendation on alcohol cessation addressed in detail. Patient understands this. At discharge she will continue with folic acid 1 mg daily and thiamine 100 mg daily. 4. Patient likely has underlying COPD. At discharge patient will continue with Airduo 1 puff twice daily and Pro air 2 puffs 3 times a day as needed for shortness of breath. Patient may follow up with a PCP or pulmonology to further monitor and address. 5. Tobacco and alcohol cessation addressed in detail. Patient was positive for THC. Cessation also address in detail. Patient understands this. Patient will be provided information to establish care in the local community with a PCP. Diet: Regular Activity: Fall precautions Time spent managing pt's care (in minutes): 55
--- NOTE | 2017-12-16 12:37 | ECHO ---
HEIGHT: 5 ft 8 in WEIGHT: 120 lb 0 oz DATE OF STUDY: 12/16/[address]: Adrian Patel DO 2-DIMENSIONAL: YES M.MODE: YES DOPPLER: YES COLOR FLOW: YES TDS: NO PORTABLE: NO DEFINITY: NO BUBBLE STUDY: NO DIAGNOSIS: ALTERED MENTAL STATUS/ SUSPECT SYNCOPE CARDIAC HISTORY: CATHERIZATION: NO SURGERY: NO PROSTHETIC VALVE: NO PACEMAKER: NO MEASUREMENTS (cm) DIASTOLIC (NORMALS) SYSTOLIC (NORMALS) IVSd 0.9 (0.6-1.2) LA Diam 3.0 (1.9-4.0) LVEF 66% LVIDd 4.3 (3.5-5.7) LVIDs 2.7 (2.0-3.5) %FS 36% LVPWd 1.0 (0.6-1.2) Ao Diam 3.4 (2.0-3.7) 2 DIMENSIONAL ASSESSMENT: RIGHT ATRIUM: NORMAL LEFT ATRIUM: NORMAL RIGHT VENTRICLE: NORMAL LEFT VENTRICLE: NORMAL TRICUSPID VALVE: NORMAL MITRAL VALVE: NORMAL PULMONIC VALVE: NORMAL AORTIC VALVE: NORMAL PERICARDIAL EFFUSION: NONE AORTIC ROOT: NORMAL LEFT VENTRICULAR WALL MOTION: NORMAL. DOPPLER/COLOR FLOW: MILD AORTIC REGURGITATION. MILD TRICUSPID REGURGITATION. MILD PULMONARY HYPERTENSION. ESTIMATED RIGHT VENTRICULAR SYSOTLIC PRESSURE 38mmHg. COMMENTS: NORMAL 2D ECHO. MILD AORTIC AND TRICUSPID REGURGITATION. MILD PULMONARY HYPERTENSION. TECHNOLOGIST: SAHRA KESSLER
[2017-12-18 16:08] LABS: HIV 1/2 Antibody Diff Not indicated.; HIV AG/AB 4TH GEN Non-reactive (Non-reactive)
[2017-12-19 03:27] LABS: HBsAG Nonreactive (Nonreactive); Hepatitis A IgM Antibody Nonreactive
[2017-12-20 19:55] LABS: Hepatitis C Virus RNA (PCR)log 6.08 log IU/mL
== END 2017-12-16 11:50 | disposition home or self-care (01) ==
LOC: ER 14:15 → ERHOLD 17:19 → 4TH 18:22
PROVIDERS: ADMIT Family Medicine; ATTEND Family Medicine
DX: R55 Syncope and collapse (principal); R41.82 Altered mental status, unspecified; E86.0 Dehydration; E43 Unspecified severe protein-calorie malnutrition; Z68.1 Body mass index [BMI] 19.9 or less, adult; E87.1 Hypo-osmolality and hyponatremia; F10.10 Alcohol abuse, uncomplicated; F12.10 Cannabis abuse, uncomplicated; R79.89 Other specified abnormal findings of blood chemistry; F17.210 Nicotine dependence, cigarettes, uncomplicated; Z88.0 Allergy status to penicillin
CPT/HCPCS: 36415; 70450; 70544; 70549; 70553; 71045; 76705; 80048; 80053; 80061; 80074; 80076; 80307; 80320; 80329; 81003; 82550; 82553; 83735; 84439; 84443; 84484; 85025; 85610; 85730; 87389; 87522; 93005; 93306; 93880; 94640; 97163; 99285; A9577; G0378; J1650; J7030; J7605

== ENCOUNTER 2023-02-23 06:52 | Day surgery (SDC) | payer OTHER ==
[2023-02-17 10:39] LABS: Absolute Lymphocytes (CBC) 2.8 K/uL (0.7-4.9); Hematocrit 44.3 % (39.6-49.0); Lymphocytes % 18.5 % (15.3-44.8); MCV 92.1 fL (80-100); MPV 7.4 fL (7.6-11.3); Platelets 293 thou/uL (152-406); RBC Red Blood Cell Count 4.81 M/uL (4.33-5.43)
[2023-02-17 11:03] LABS: Protime INR 1.05
--- NOTE | 2023-02-17 11:14 | RAD REPORT ---
EXAM DESCRIPTION: RAD - Chest Pa And Lat (2 Views) - 02/17/2023 10:40 am CLINICAL HISTORY: Pre op pending heart catheterization Chest pain. COMPARISON: Chest Single View dated 12/15/2017 TECHNIQUE: PA and lateral views of the chest were obtained. FINDINGS: The lungs are hyperexpanded compatible with COPD. The heart is upper limit of normal in si ze. No fracture or aggressive bony process. IMPRESSION: COPD without acute process identified. The USPSTF recommends annual screening for lung cancer with low-dose CT (LDCT) in adults aged 50 to 8 0 years who have a 20 pack-year smoking history and currently smoke or have quit within the past 15 y ears.
--- NOTE | 2023-02-18 15:48 | EKG ---
Test Date: 2023-02-17 Test Time: 10:20:26 Engraving Supervisor: ISABEL MEASUREMENT RESULTS: Intervals: Rate: 56 LA: 168 QRSD: 82 QT: 452 QTc: 436 [place]: P: 66 LA: 168 QRS: 5 T: 67 INTERPRETIVE STATEMENTS: Sinus bradycardia Possible Left atrial enlargement Septal infarct, age undetermined Abnormal ECG Compared to ECG 12/15/2017 15:11:36 Sinus rhythm no longer present Myocardial infarct finding still present Electronically Signed On 02-18-23 15:43:29 CDT by Gil Su
[2023-02-23] MEDS ORDERED: NA CHLORIDE 0.9% 500 ML ONE (07:31)
[2023-02-23 07:40] VITALS: TEMP 98
[2023-02-23 07:55] LABS: Potassium 3.5 mEq/L (3.5-5.1)
[2023-02-23] MEDS ORDERED: HEPA 1000U/500MLS 2,000 UNIT/1,000 ML BAG IV ONE (08:51)
[2023-02-23] MEDS ORDERED: MIDAZOLAM HCL 2 MG/2 ML INJ ONE (08:51)
[2023-02-23] MEDS ORDERED: HEPARIN 5000 UNIT/ML 1 ML VIAL ONE (08:51)
[2023-02-23] MEDS ORDERED: LIDOCAINE 1% 20 ML MDV ONE (08:51)
[2023-02-23] MEDS ORDERED: HEPARIN 10,000 UNIT/10 ML VIAL IV ONE (08:52)
[2023-02-23] MEDS ORDERED: ASPIRIN 325 MG TAB ONE (08:52)
[2023-02-23] MEDS ORDERED: VERAPAMIL HCL 10 MG/4 ML VIAL IV ONE (08:52)
[2023-02-23] MEDS ORDERED: CLOPIDOGREL 75 MG TABLET ONE (08:52)
[2023-02-23] MEDS ORDERED: ATROPINE SULF 1 MG/10 ML SYR IV ONE (08:53)
[2023-02-23] MEDS ORDERED: TICAGRELOR 90 MG TABLET PO ONE (08:53)
[2023-02-23] MEDS ORDERED: FENTANYL CITR 100 MCG/2 ML ONE (08:53)
[2023-02-23 13:39] VITALS: O2SAT 99
[2023-02-23 13:45] VITALS: BP 145/61
--- NOTE | 2023-02-24 20:17 | OP ---
Date of Procedure: 02/23/2023 Surgeon: RITCHIE HAWKINS Procedures Performed: 1.Selective coronary angiogram. 2.Left heart catheterization. Indication: Unstable angina. Access: Right radial artery 6-[place]izen [place] closed with TR band. Complications: None. Bleeding: Less than 20 mL. Description Of Procedure: After risks, benefits, and alternatives were explained, patient agreed to procedure and signed informed consent. Patient was brought into cardiac catheterization laboratory, prepped and draped in usual sterile fashion. Then, I accessed right radial artery using pediatric mi cropuncture kit and placed 6-[place] slender sheath and took 5-[place] 4.0 catheter into the aort ic root over a J-wire, engaged left main, took standard views and then RCA, took standard views and t he catheter was pushed over the wire into the LV, measured LVEDP. Pullback did not record any gradie nt and then I removed the catheter and the sheath, placed TR band with good hemostasis. Findings: 1.Left main: Large and normal. 2.LAD: Large, normal proximal segment. Mid segment is focal 20% to 30% stenosis. Rest of the LAD is normal. 3.Left circumflex is normal. 4.RCA is normal. 5.Normal LVEDP at 7 mmHg. Conclusion: 1.Mild nonobstructive coronary artery disease. 2.Normal LVEDP. Recommendation: Medical management. /PIOTRL Voice ID: [id number] Report ID: [id number]
== END 2023-02-23 11:25 | disposition home or self-care (01) ==
LOC: CCL 06:52
PROVIDERS: ATTEND Internal Medicine
DX: I25.110 Atherosclerotic heart disease of native coronary artery with unstable angina pectoris (principal); I34.0 Nonrheumatic mitral (valve) insufficiency; I35.1 Nonrheumatic aortic (valve) insufficiency; I65.22 Occlusion and stenosis of left carotid artery; I10 Essential (primary) hypertension; F17.210 Nicotine dependence, cigarettes, uncomplicated; Z79.82 Long term (current) use of aspirin; Z79.899 Other long term (current) drug therapy; Z88.0 Allergy status to penicillin
CPT/HCPCS: 93005; 85025; 80048; 36415 ×2; 85610; 85730; 71046; 93458; 76937; C1893; Q9966; J1644; J2001; J2250; J3010; J7040; J0461